=== PATIENT | female | born 1940 | race Caucasian/White ===

== ENCOUNTER → 2023-07-17 13:20 | Outpatient (REF) | payer MEDICARE, SELFPAY ==
[2023-07-17 20:27] LABS: TSH Reflex To Free T4 0.45 uIU/ml (0.47-4.68)
== END ==
LOC: CLAB 13:20
PROVIDERS: ATTENDING PHYSICIAN Emergency Medicine
DX: E03.9 Hypothyroidism, unspecified (principal)
CPT/HCPCS: 36415; 84439; 84443

== ENCOUNTER → 2023-08-28 11:53 | Outpatient (REF) | payer MEDICARE, SELFPAY | LOC: PAVMRI 11:53 | PROVIDERS: ATTENDING PHYSICIAN Emergency Medicine | DX: I67.89 Other cerebrovascular disease (principal); R51.9 Headache, unspecified | CPT/HCPCS: 70544; 70551 ==

== ENCOUNTER → 2023-09-03 10:35 | Outpatient (REF) | payer MEDICARE, SELFPAY ==
[2023-09-03 14:02] LABS: Free T4 0.49 ng/dl (0.78-2.19)
== END ==
LOC: HWLAB 10:35
PROVIDERS: ATTENDING PHYSICIAN Emergency Medicine
DX: E03.9 Hypothyroidism, unspecified (principal)
CPT/HCPCS: 36415; 84439; 84443

== ENCOUNTER → 2023-09-11 12:02 | Outpatient (REF) | payer MEDICARE, SELFPAY | LOC: HWRAD 12:02 | PROVIDERS: ATTENDING PHYSICIAN Emergency Medicine | DX: M54.2 Cervicalgia (principal) | CPT/HCPCS: 72052 ==

== ENCOUNTER → 2023-10-06 10:35 | Outpatient (REF) | payer MEDICARE, SELFPAY ==
[2023-10-06 13:42] LABS: Free T4 0.68 ng/dl (0.78-2.19)
== END ==
LOC: HWLAB 10:35
PROVIDERS: ATTENDING PHYSICIAN Emergency Medicine
DX: E03.9 Hypothyroidism, unspecified (principal)
CPT/HCPCS: 36415; 84439; 84443

== ENCOUNTER → 2023-10-17 13:35 | Outpatient (REF) | payer MEDICARE, SELFPAY ==
[2023-10-17 14:01] LABS: % Basophils 0.9 % (0-2); % Immature Granulocytes 0.4 % (0-0.5); % Lymphocytes 33.3 % (20.5-51.1); % Monocytes 11.6 % (1.7-9.3); % Neutrophils 47.8 % (42.2-75.2); Absolute Basophils 0.1 10^3/uL (0-0.2); Absolute Eosinophils 0.3 10^3/uL (0-0.7); Absolute Lymphocytes 1.9 10^3/uL (1.2-3.4); Absolute Monocytes 0.7 10^3/uL (0.1-0.6); Absolute Neutrophils 2.7 10^3/uL (1.4-6.5); Hematocrit 41.4 % (37.0-47.0); Hemoglobin 13.8 g/dL (12.0-16.0); Mean Corp Hgb Conc. 33.3 g/dL (33.0-37.0); Mean Platelet Volume 9.2 fL (7.4-10.4); Nucleated Red Blood Cells % 0 %; Platelet Count 213 10^3/uL (130-400); Red Cell Dist. Width 14.6 % (11.5-14.5); White Blood Cell Count 5.6 10^3/uL (4.8-10.8)
[2023-10-17 14:22] LABS: ALT (SGPT) 12 U/L (0-35); AST (SGOT) 21 U/L (14-36); Albumin 4.6 g/dl (3.5-5.0); Alkaline Phosphatase 64 U/L (38-126); Blood Urea Nitrogen 31 mg/dl (7-17); Calcium 9.9 mg/dl (8.4-10.2); Carbon Dioxide 25 mmol/L (22-30); Chloride 105 mmol/L (98-107); Glucose 92 mg/dl (70-99); Potassium 4.3 mmol/L (3.5-5.1); Sodium 140 mmol/L (135-145); Total Bilirubin 0.7 mg/dl (0.2-1.3); eGFR 45.48
== END ==
LOC: RAD 13:35
PROVIDERS: ATTENDING PHYSICIAN Emergency Medicine; REFERRING PHYSICIAN Internal Medicine Cardiovascular Disease
DX: R61 Generalized hyperhidrosis (principal); R19.5 Other fecal abnormalities; R10.30 Lower abdominal pain, unspecified; Z87.19 Personal history of other diseases of the digestive system
CPT/HCPCS: 36415; 74177; 80053; 85025; Q9967

== ENCOUNTER 2023-10-18 11:14 | Emergency (ER) | payer MEDICARE, SELFPAY ==
[2023-10-18 11:28] VITALS: BP 181/91
[2023-10-18 12:51] VITALS: BP 149/84
[2023-10-18 13:00] VITALS: BP 146/62
[2023-10-18 13:01] LABS: % Eosinophils 4.8 % (0-6); % Immature Granulocytes 0.4 % (0-0.5); % Neutrophils 47.8 % (42.2-75.2); Absolute Basophils 0.1 10^3/uL (0-0.2); Absolute Eosinophils 0.2 10^3/uL (0-0.7); Absolute Lymphocytes 1.7 10^3/uL (1.2-3.4); Absolute Monocytes 0.6 10^3/uL (0.1-0.6); Absolute Neutrophils 2.4 10^3/uL (1.4-6.5); Hematocrit 41.4 % (37.0-47.0); Hemoglobin 13.3 g/dL (12.0-16.0); Mean Corp Hgb Conc. 32.1 g/dL (33.0-37.0); Mean Corpuscular Hgb 29.8 pg (27.0-31.0); Mean Corpuscular Volume 92.8 fL (81.0-99.0); Mean Platelet Volume 9.3 fL (7.4-10.4); Nucleated Red Blood Cells % 0 %; Platelet Count 198 10^3/uL (130-400); Red Blood Cell Count 4.46 10^6/uL (4.20-5.40); Red Cell Dist. Width 14.5 % (11.5-14.5)
[2023-10-18 13:21] LABS: ALT (SGPT) 12 U/L (0-35); AST (SGOT) 20 U/L (14-36); Albumin 4.4 g/dl (3.5-5.0); Alkaline Phosphatase 63 U/L (38-126); Blood Urea Nitrogen 29 mg/dl (7-17); Calcium 10.5 mg/dl (8.4-10.2); Carbon Dioxide 23 mmol/L (22-30); Chloride 107 mmol/L (98-107); Glucose 86 mg/dl (70-99); Sodium 140 mmol/L (135-145); Total Bilirubin 0.8 mg/dl (0.2-1.3); Total Protein 6.8 g/dl (6.3-8.2)
[2023-10-18 14:00] VITALS: BP 149/61
--- NOTE | 2023-10-18 14:32 | ED.GENMED ---
History of Present Illness
General
Chief Complaint: Abdominal Pain
Source: patient
Exam Limitations: none
Time Seen by Provider: 10/18/23 12:30
Travel History
Have you had any contact with someone who has COVID-19?: No
Do you have any symptoms of coronavirus? Fever > 100 degrees, chills, cough, shortness of breath, sore throat, loss of taste or smell, muscle aches, or headache?: No
History of Present Illness
History of Present Illness:
83-year-old female who was at her PCP yesterday for normal checkup. Was noticed that she had small amount of left abdominal tenderness. She was sent for CT imaging. Outpatient CT imaging showed question whether there is extraluminal air versus
diverticular air. The patient states she has no difference in her symptoms. She does have very mild midline discomfort in her abdomen but feels like it is gas that she has been belching. The patient did not want to come back but was advised by
her doctor to come back last night. Patient states that she then waited till today and her daughter made her come. No vomiting. No fevers. No melena. No hematochezia.
Past History
Past History
ED Past Medical History: HTN, Hypothyroidism and Other (Diverticulitis, diverticulosis, candidal esophagitis)
ED Past Surgical History: Appendectomy, Gynecological and Tonsilectomy
Social History
Tobacco: Non-smoker
Alcohol: None
Drug: None
Personal:
Living: with family
Phy Exam
Physical Exam
Physical Exam:
CONSTITUTIONAL Patient alert and oriented to person, place and time. Well-appearing. Vital signs reviewed.
HEAD atraumatic, normocephalic.
EYES eyelids normal to inspection, Extraocular muscles intact, Conjunctiva normal, Sclera normal.
NECK normal range of motion, Trachea midline, no jugular venous distention.
RESPIRATORY CHEST No respiratory distress noted, Chest expansion equal, Bilateral breath sounds clear.
CARDIOVASCULAR regular rate and rhythm, Heart sounds normal.
ABDOMEN very mild midline tenderness, Bowel sounds normal. No distention.
BACK normal inspection, no obvious deformities
UPPER EXTREMITY range of motion normal, Motor strength normal, no cyanosis, no edema.
LOWER EXTREMITY range of motion normal, Motor strength normal, no cyanosis, no edema.
NEURO Speech normal, No focal motor deficits, [place] coma scale 15, Memory normal, Cranial Nerves intact to screening exam.
SKIN skin warm, dry, and normal in color.
Course
Orders/Labs/Results
Orders:
Orders
10/18/23 12:49
Complete Blood Count/With Diff Urgent
Comprehensive Metabolic Panel Urgent
10/18/23 14:09
SURGICAL CONSULT Urgent
Consulting Provider: Rudy Heredia
Was physician already notified: Yes
Abnormal Lab Results
10/18/23
12:49
MCHC 32.1 L g/dL
(33.0-37.0)
Monocytes % 12.0 H %
(1.7-9.3)
BUN 29 H mg/dl
(7-17)
Calcium 10.5 H mg/dl
(8.4-10.2)
10/18/23 12:49
10/18/23 12:49
Vital Signs
Initial and Last Documented VS:
Initial Vital Signs
Temp Pulse Resp BP Pulse Ox
98.1 F 59 18 181/91 95
10/18/23 11:28 10/18/23 11:28 10/18/23 11:28 10/18/23 11:28 10/18/23 11:28
Last Documented Vital Signs
Temp Pulse Resp BP Pulse Ox
98.1 F 59 18 146/62 97
10/18/23 11:28 10/18/23 11:28 10/18/23 11:28 10/18/23 13:00 10/18/23 13:30
MDM/Problems Addressed
MDM/Problems Addressed:
Diverticulitis, abdominal pain, abnormal CT
*Radiology
Radiology exam reviewed: preliminary read by ED provider (CT from yesterday reviewed, no obvious obstruction)
*Pulse Oximetry
Patient hypoxic: no
*Critical Care Note
Total Time (30-74mins, 75-104mins- exclusive of procedures): Not Applicable
Data Reviewed
Source: patient and family
Further Testing Considered But Not Given:
Consider repeat CT but abdomen benign.
Patient Management
Social determinants of health affecting care: Living situation
Discussion with other providers: Toll Booth Operator (Case discussed with Dr. Heredia from surgery)
Escalation/DeEscalation of care consider admission/obs:
Patient seen by surgery. Surgery agrees her abdomen is benign but does recommend a 10-day course of antibiotics and follow-up with surgery as an outpatient. I think this is reasonable. Patient agrees to return immediately for any progression of
symptoms
ED Attending Note
-
Portions of this chart may have been created with voice recognition software.� Occasional wrong word or��sound alike� substitutions may have occurred due to the inherent limitations of voice recognition software.
Discharge Plan
Departure
Patient Disposition: Home (Routine Discharge)
Date of Disposition: 10/18/23
Time of Disposition: 14:36
Patient with high blood pressure during this ER visit?: Yes
Discharge Problem:
Abdominal discomfort
Instructions: Abdominal Pain, BLOOD PRESSURE
Prescriptions:
New
amoxicillin-pot clavulanate 875-125 mg tablet
1 tab PO BID Qty: 20 0RF
No Action
levothyroxine 75 MCG tablet
75 mcg PO DAILY
amlodipine 5 MG tablet
5 mg PO DAILY
rosuvastatin 5 MG tablet
5 mg PO DAILY
Vitamin D
1 tab PO DAILY
cyanocobalamin (vitamin B-12)
1 tab PO DAILY
mupirocin 2 % ointment
1 applic topical BID Qty: 1 0RF
Patient Comments:
started treatment friday05/17/23 and completed BID and last took at home 05/21/23 in am
sennosides [Senokot] 8.6 mg tablet
17.2 mg PO BID Qty: 2 0RF
prednisone 10 mg tablet
40 mg PO TAPER Qty: 10 0RF
Rx Instructions:
4 tab(40mg) day 1, 3 tabs(30mg) day 2, 2 tabs(20mg) day3,
1 tab (10mg) day 4, then stop
aspirin 325 mg tablet
325 mg PO DAILY Qty: 1 0RF
Rx Instructions:
Take with food
famotidine 20 mg tablet
20 mg PO HS Qty: 30 0RF
Rx Instructions:
post-op
magnesium hydroxide [Milk of Magnesia] 400 mg/5 mL suspension
30 ml PO HS PRN (Reason: Constipation) Qty: 1 0RF
docusate sodium [Colace] 100 mg capsule
100 mg PO BID Qty: 1 0RF
gabapentin 300 mg capsule
300 mg PO HS Qty: 10 0RF
ondansetron [ondansetron] 4 mg tablet,disintegrating
4 mg PO Q6H PRN (Reason: n/v) Qty: 20 0RF
Rx Instructions:
take 1/2h b/f pain med if recurrent nausea
allow to dissolve in mouth w/o water
acetaminophen [Tylenol] 325 mg capsule
650 mg PO QID Qty: 2 0RF
hydrocodone-acetaminophen 5-325 mg tablet
1 tab PO Q6H PRN (Reason: 1 tab moderate pain or 2 if severe) Qty: 30 0RF
Rx Instructions:
Dx orthopedic surgery
ongoing therapy
Referrals:
Daysi De La Cruz MD [Family Provider] -
Rudy Heredia MD [Active] -
Activity Restrictions/Additional Instructions:
Return immediately for worsening abdominal pain, vomiting, fevers, blood in stool or any other concerns. Please see Dr. Heredia in the next 10 to 14 days for follow-up and reevaluation.
Interventions
Interventions:
*ED COVID-19 Vaccine History Last Done: 10/18/23 11:28
DT-Crvckk-Nkucliuooc Assessment Last Done: 10/18/23 13:18
Discharge Date and Time
Print Language: [place] CITIZEN
--- NOTE | 2023-10-18 14:44 | CON.GS ---
Addendum entered and electronically signed by Rudy Heredia MD 10/18/23 15:24:
I saw and examined the patient independently.
The Veterinary Science Teacher's note was reviewed and I agree with the note, assessment and plan except where noted below.
Comment: This is a 83-year-old female with a history of diverticulitis who presents for evaluation after recent PCP visit in which some left lower quadrant tenderness was noted. She had a CT scan which demonstrated 'extensive sigmoid diverticulosis
and possible extraluminal air' clinically however the patient is only mildly tender to palpation in the left lower quadrant near the umbilicus without any rebound or guarding. Her vital signs are stable. She has no leukocytosis and the rest of her
labs are unremarkable. I reviewed her CT scan personally and I agree there are some spots of extraluminal air this appears to be in the mesentery of the colon and not free air. There is no surrounding bowel wall thickening, fluid or abscess
however I do see some degree of inflammation concerning for diverticulitis.
Given her overall clinical picture, I believe it is safe to proceed with nonoperative management of diverticulitis.
Recommend a 10-day course of Augmentin.
The patient does live alone, however she is accompanied by her son and daughter who are reliable and will be checking in on her over the next few days. If she has worsening pain, develops fever or any other symptoms she will return to the ER for
evaluation.
I will see her back in the office for outpatient follow-up and 2 weeks.
Original Note:
Consultation
-
Date/Time Consultation Requested: 10/18/2023, 13:45
Date/Time Consultation Performed: 10/18/2023, 14:15
Requesting Provider: Thee Samano MD
Performing Provider: Rudy Heredia MD
Reason for Consultation: diverticulitis
Medical History
-
Chief Complaint: abdominal pain
History of Present Illness:
83yo female presents to the ER due to an abnormal CT as an outpatient. Her PCP noticed she was tender in her LLQ on exam and ordered the CT. Due to abnormal findings, she came to the ER. The CT was performed yesterday and showed 'Extensive sigmoid
diverticulosis. Along the proximal margin of the sigmoid colon, there is a nonspecific 17 mm extraluminal gas and fluid focus which may represent a prominent diverticulum with the mouth of the diverticulum not clearly imaged, though such a finding
was not present on the prior CT. Alternatively, this could represent a small abscess related to a prior episode of now resolved diverticulitis. There is no significant stranding or inflammation to changes within the left lower quadrant. No colonic
wall thickening.'
The patient states she has no complaints. She has flatus and bowel movements. She denies rectal bleeding. She has never attacks of diverticulitis in the past, all treated with outpatient antibiotics. Her only abdominal surgery was a hysterectomy and
appendectomy. She had a colonoscopy less than 10 years ago but does not remember results or where. She currently has no complaints. In the ER her WBC is 5.0. Her vitals are normal. We have been consulted for further surgical recommendation.
Past Medical History
Past Medical History: HTN, Hypothyroidism and Other (Diverticulitis, diverticulosis, candidal esophagitis)
Past Surgical History: Other (Appendectomy, Gynecological and Tonsilectomy)
Social History
Tobacco: Non-Smoker
Alcohol: None
Drug: None
Living: Alone
Family History
Family History: Reviewed & Not Pertinent
Allergies / Home Medications
Allergy/AdvReac Type Severity Reaction Status Date / Time
codeine [Codeine] Allergy Itching Verified 10/18/23 11:33
�Medication �Instructions �Recorded �Confirmed �Type
levothyroxine 75 mcg tablet 75 mcg PO DAILY Thyroid 10/24/11 05/21/23 History
amlodipine 5 mg tablet 5 mg PO DAILY Blood Pressure 10/21/18 05/21/23 History
Vitamin D 1 tab PO DAILY Supplement 06/14/19 05/21/23 History
rosuvastatin 5 mg tablet 5 mg PO DAILY High Cholesterol 06/14/19 05/21/23 History
cyanocobalamin (vitamin B-12) 1 tab PO DAILY Supplement 04/16/23 05/21/23 History
mupirocin 2 % topical ointment 1 applic topical BID infection 04/23/23 Rx
prevention #1 tube
acetaminophen 325 mg capsule 650 mg (2 x 325 mg) PO QID #2 caps 05/22/23 Rx
(Tylenol)
aspirin 325 mg tablet 325 mg PO DAILY blood clot 05/22/23 Rx
prevention #1 tab
docusate sodium 100 mg capsule 100 mg PO BID stool softner #1 cap 05/22/23 Rx
(Colace)
famotidine 20 mg tablet 20 mg PO HS GI prophylaxis #30 tabs 05/22/23 Rx
gabapentin 300 mg capsule 300 mg PO HS sleep/pain #10 caps 05/22/23 Rx
hydrocodone 5 mg-acetaminophen 325 1 tab PO Q6H PRN 1 tab moderate 05/22/23 Rx
mg tablet pain or 2 if severe #30 tabs
magnesium hydroxide 400 mg/5 mL 30 ml PO HS PRN Constipation #1 mL 05/22/23 Rx
oral suspension (Milk of Magnesia)
ondansetron 4 mg disintegrating 4 mg PO Q6H PRN n/v #20 tabs 05/22/23 Rx
tablet
prednisone 10 mg tablet 40 mg (4 x 10 mg) PO TAPER #10 tabs 05/22/23 Rx
sennosides 8.6 mg tablet (Senokot) 17.2 mg (2 x 8.6 mg) PO BID 05/22/23 Rx
laxative #2 tabs
amoxicillin 875 mg-potassium 1 tab PO BID #20 tabs 10/18/23 Rx
clavulanate 125 mg tablet
Review of Systems
-
History Source: Patient
Abdomen/GI: Abdominal Pain
A 10 point review of systems was completed, and was negative except as per HPI.
Physical Exam
Vital Signs
Temp Pulse Resp BP Pulse Ox
98.1 F 59 18 149/61 97
10/18/23 11:28 06/15/24 11:28 10/18/23 11:28 10/18/23 14:00 10/18/23 14:30
10/17/23 10/18/23 10/19/23
06:59 06:59 06:59
Actual Weight 74 kg
Lab Results
10/18/23 12:49
10/18/23 12:49
WBC 5.0 10^3/uL (4.8-10.8) 10/18/23 12:49
Hgb 13.3 g/dL (12.0-16.0) 10/18/23 12:49
Hct 41.4 % (37.0-47.0) 10/18/23 12:49
Plt Count 198 10^3/uL (130-400) 10/18/23 12:49
Abs Immat Gran (auto) 0.0 10^3/uL (0-0.05) 10/18/23 12:49
Neutrophils % 47.8 % (42.2-75.2) 10/18/23 12:49
Physical Exam
General: Well Developed and No Apparent Distress
GI: Soft, Non Distended and Tender (mild LLQr)
Neuro: AO x 3
Data Reviewed
-
CT Scan: Image Personally Visualized and interpreted, Report Reviewed by me and Discussed with Patient
Labs: Labs Reviewed by me, Discussed with Physician and Discussed with Patient
Old Records: Reviewed
Assessment / Plan
-
Assessment: 83yo female with a PMH of diverticulitis presents to the ER due to an abnormal outpatient CT done yesterday that was ordered due to mild LLQ tenderness by her PCP, WBC 5.0 and vitals normal
Plan:
-No plans for OR. Patient is afebrile and WBC normal.
-Discussed with family at length, decision okay to be discharged home with oral antibiotics.
-Follow up in 2 weeks in the office with Dr. Rudy Yan.
-She will return to the ER if her symptoms worsen.
-Discussed with ER doctor. Okay for discharge.
== END 2023-10-18 14:55 | disposition home or self-care (01) ==
LOC: EMR 11:14
PROVIDERS: CONSULT PHYSICIAN Surgery; EMERGENCY PHYSICIAN Emergency Medicine; FAMILY PHYSICIAN Emergency Medicine
DX: R10.32 Left lower quadrant pain (principal); K57.30 Diverticulosis of large intestine without perforation or abscess without bleeding; I10 Essential (primary) hypertension; E03.9 Hypothyroidism, unspecified; Z79.82 Long term (current) use of aspirin; Z88.5 Allergy status to narcotic agent
CPT/HCPCS: 99283; 80053; 85025

== ENCOUNTER → 2023-10-28 12:44 | Outpatient (REF) | payer MEDICARE, SELFPAY | LOC: HWRAD 12:44 | PROVIDERS: ATTENDING PHYSICIAN Emergency Medicine | DX: R10.84 Generalized abdominal pain (principal); R14.0 Abdominal distension (gaseous); Z87.19 Personal history of other diseases of the digestive system | CPT/HCPCS: 74177; Q9967 ==

== ENCOUNTER → 2024-01-12 10:09 | Outpatient (REF) | payer MEDICARE, SELFPAY ==
[2024-01-12 12:24] LABS: % Basophils 0.8 % (0-2); % Eosinophils 5.6 % (0-6); % Immature Granulocytes 0.2 % (0-0.5); % Lymphocytes 31.7 % (20.5-51.1); % Monocytes 10.2 % (1.7-9.3); % Neutrophils 51.5 % (42.2-75.2); Absolute Eosinophils 0.3 10^3/uL (0-0.7); Absolute Lymphocytes 1.6 10^3/uL (1.2-3.4); Absolute Monocytes 0.5 10^3/uL (0.1-0.6); Absolute Neutrophils 2.7 10^3/uL (1.4-6.5); Hematocrit 42.1 % (37.0-47.0); Hemoglobin 13.8 g/dL (12.0-16.0); Mean Corp Hgb Conc. 32.8 g/dL (33.0-37.0); Mean Corpuscular Hgb 30.5 pg (27.0-31.0); Mean Corpuscular Volume 92.9 fL (81.0-99.0); Mean Platelet Volume 10.3 fL (7.4-10.4); Nucleated Red Blood Cells % 0.8 %; Platelet Count 213 10^3/uL (130-400); Red Blood Cell Count 4.53 10^6/uL (4.20-5.40); Red Cell Dist. Width 12.6 % (11.5-14.5); White Blood Cell Count 5.2 10^3/uL (4.8-10.8)
[2024-01-12 12:35] LABS: Blood Urea Nitrogen 28 mg/dl (7-17); Calcium 9.8 mg/dl (8.4-10.2); Carbon Dioxide 24 mmol/L (22-30); Chloride 105 mmol/L (98-107); Glucose 90 mg/dl (70-99); Sodium 143 mmol/L (135-145)
[2024-01-12 13:03] LABS: TSH Reflex To Free T4 0.08 uIU/ml (0.47-4.68)
[2024-01-12 13:23] LABS: Vitamin B12 661 pg/ml (239-931)
[2024-01-12 13:30] LABS: Free T4 1.64 ng/dl (0.78-2.19)
[2024-01-13 09:14] LABS: Glycohemoglobin (HgbA1c) 5.6 % (4.0-5.6)
[2024-01-14 12:12] LABS: Quantiferon Mitogen minus NIL 9.94 IU/mL; Quantiferon NIL 0.06 IU/mL; Quantiferon TB Gold Plus Negative (Negative)
== END ==
LOC: HWLAB 10:09
PROVIDERS: ATTENDING PHYSICIAN Emergency Medicine
DX: M79.7 Fibromyalgia (principal); K57.92 Diverticulitis of intestine, part unspecified, without perforation or abscess without bleeding; I25.10 Atherosclerotic heart disease of native coronary artery without angina pectoris; M17.12 Unilateral primary osteoarthritis, left knee; E53.8 Deficiency of other specified B group vitamins; E03.9 Hypothyroidism, unspecified; G31.84 Mild cognitive impairment of uncertain or unknown etiology; R73.03 Prediabetes; I10 Essential (primary) hypertension; E75.5 Other lipid storage disorders; R53.83 Other fatigue; M79.2 Neuralgia and neuritis, unspecified; R61 Generalized hyperhidrosis; R43.2 Parageusia; Z79.899 Other long term (current) drug therapy
CPT/HCPCS: 36415; 80048; 82306; 82607; 83036; 84155; 84165; 84439; 84443; 85025; 86480

== ENCOUNTER → 2024-03-01 17:10 | Outpatient (REF) | payer MEDICARE, SELFPAY ==
[2024-03-01 18:43] LABS: TSH Reflex To Free T4 1.43 uIU/ml (0.47-4.68)
== END ==
LOC: CLAB 17:10
PROVIDERS: ATTENDING PHYSICIAN Emergency Medicine
DX: E03.9 Hypothyroidism, unspecified (principal)
CPT/HCPCS: 36415; 84443

== ENCOUNTER → 2024-07-29 11:02 | Outpatient (REF) | payer MEDICARE, SELFPAY | LOC: PAVMRI 11:02 | PROVIDERS: ATTENDING PHYSICIAN Emergency Medicine | DX: G31.84 Mild cognitive impairment of uncertain or unknown etiology (principal); R42 Dizziness and giddiness; M54.2 Cervicalgia | CPT/HCPCS: 70544; 70553; A9575 ==

== ENCOUNTER → 2024-09-08 15:23 | Outpatient (REF) | payer MEDICARE, SELFPAY | LOC: HWRAD 15:23 | PROVIDERS: ATTENDING PHYSICIAN Internal Medicine Cardiovascular Disease; FAMILY PHYSICIAN Emergency Medicine | DX: R42 Dizziness and giddiness (principal); R09.89 Other specified symptoms and signs involving the circulatory and respiratory systems | CPT/HCPCS: 93880 ==

== ENCOUNTER → 2024-09-10 11:23 | Outpatient (REF) | payer MEDICARE, SELFPAY | LOC: HWRCS 11:23 | PROVIDERS: ATTENDING PHYSICIAN Internal Medicine Cardiovascular Disease; FAMILY PHYSICIAN Emergency Medicine | DX: R42 Dizziness and giddiness (principal) | CPT/HCPCS: 93306 ==

== ENCOUNTER → 2024-11-29 12:15 | Outpatient (REF) | payer MEDICARE, SELFPAY ==
[2024-11-29 18:02] LABS: ALT (SGPT) 15 U/L (0-35); AST (SGOT) 18 U/L (14-36); Albumin 4.4 g/dl (3.5-5.0); Alkaline Phosphatase 65 U/L (38-126); Blood Urea Nitrogen 28 mg/dl (7-17); Calcium 9.3 mg/dl (8.4-10.2); Carbon Dioxide 25 mmol/L (22-30); Chloride 107 mmol/L (98-107); Glucose 96 mg/dl (70-99); HDL Cholesterol 59 mg/dl; LDL Cholesterol, Calculated 69 mg/dl; Potassium 4.2 mmol/L (3.5-5.1); Sodium 140 mmol/L (135-145); Total Protein 6.7 g/dl (6.3-8.2); Very Low Density Lipoprotein 22 mg/dl (0-30); eGFR 50.17
[2024-11-29 18:25] LABS: FSH 49.7 mIU/ml
[2024-11-30 10:16] LABS: Glycohemoglobin (HgbA1c) 5.8 % (4.0-5.6)
== END ==
LOC: CLAB 12:15
DX: E03.9 Hypothyroidism, unspecified (principal); I25.10 Atherosclerotic heart disease of native coronary artery without angina pectoris; I10 Essential (primary) hypertension; R61 Generalized hyperhidrosis; R73.03 Prediabetes
CPT/HCPCS: 36415; 80053; 80061; 83001; 83002; 83036; 84439; 84443

== ENCOUNTER → 2025-02-14 10:53 | Outpatient (REF) | payer MEDICARE, SELFPAY ==
[2025-02-14 15:39] LABS: ALT (SGPT) 14 U/L (0-35); AST (SGOT) 18 U/L (14-36); Albumin 4.5 g/dl (3.5-5.0); Alkaline Phosphatase 57 U/L (38-126); Blood Urea Nitrogen 25 mg/dl (7-17); Calcium 9.8 mg/dl (8.4-10.2); Carbon Dioxide 26 mmol/L (22-30); Chloride 107 mmol/L (98-107); Glucose 96 mg/dl (70-99); Potassium 4.0 mmol/L (3.5-5.1); Sodium 140 mmol/L (135-145); Total Protein 6.8 g/dl (6.3-8.2); eGFR 50.17
== END ==
LOC: HWLAB 10:53
DX: E03.9 Hypothyroidism, unspecified (principal); N28.9 Disorder of kidney and ureter, unspecified
CPT/HCPCS: 36415; 80053; 84443